=== PATIENT | female | born 1965 | race Caucasian/White ===

== ENCOUNTER 2018-08-04 08:11 | Day surgery (SDC) | payer BC ==
[~2018-08-04 08:11] MED LIST: Buffered Lidocaine 0.9% SYRIN* 5 ML/SYR SYRINGE INTRADERM ONE; Dexamethasone IV* 4 MG/ML 1 ML (4 MG) IV SLOW PU ONE; Famotidine IV* 10 MG/ML 2 ML (20 mg) IV ONE
[2018-08-04] MEDS ORDERED: Famotidine IV* 10 MG/ML 2 ML (20 mg) ONE (08:23)
[2018-08-04] MEDS ORDERED: Buffered Lidocaine 0.9% SYRIN* 5 ML/SYR SYRINGE ONE (08:23)
[2018-08-04] MEDS ORDERED: Dexamethasone IV* 4 MG/ML 1 ML (4 MG) ONE (08:23)
[2018-08-04] MEDS ORDERED: Midazolam* 1 MG/ML 2 ML VIAL (2 MG) ONE (09:32)
[2018-08-04] MEDS ORDERED: fentaNYL* 50 MCG/ML 2 ML VIAL (100 MCG VIAL) ONE ×2 (09:32→11:36)
[2018-08-04] MEDS ORDERED: Lidocaine 2% PF * 5 ML VIAL ONE (10:52)
[2018-08-04] MEDS ORDERED: Propofol* 10 MG/ML 20 ML BTL IV PUSH ONE (11:02)
[2018-08-04] MEDS ORDERED: Ondansetron INJ* 2 MG/ML VIAL ONE (11:12)
[2018-08-04] MEDS ORDERED: Acetaminophen TAB* 325 MG PO PRN (11:21)
[2018-08-04] MEDS ORDERED: oxyCODONE/Acetamin 5/325 MG* TAB PO PRN (11:21)
[2018-08-04] MEDS ORDERED: Naloxone* 0.4 MG/ML 1 ML VIAL IV PRN (11:21)
[2018-08-04] MEDS ORDERED: PROCHLORPERAZINE INJ 5 MG/ML 2 ML VIAL IV PRN (11:21)
[2018-08-04] MEDS ORDERED: DiMENhydriNATE IV* 50 MG/ML VIAL IV PUSH PRN (11:21)
[2018-08-04] MEDS ORDERED: PROCHLORPERAZINE INJ 5 MG/ML 2 ML VIAL ONE (11:36)
[2018-08-04] MEDS: fentaNYL* 50 MCG/ML 2 ML VIAL (100 MCG VIAL) IV PRN ×2 (11:38→11:43)
[2018-08-04 12:18] VITALS: BP 117/65
--- NOTE | 2018-08-06 12:09 | OP ---
DATE OF OPERATION: 08/04/18 - [facility] DATE OF : 69 SURGEON: Lincoln Edwards MD ANESTHESIOLOGIST: Dr. Hightower. ANESTHESIA: General endotracheal. PRE-OP DIAGNOSIS: Persistent light vaginal bleeding. POST-OP DIAGNOSIS: Persistent light vaginal bleeding and endocervical polyps. OPERATIVE PROCEDURE: Hysteroscopy, dilation and curettage, and endocervical polypectomy with MyoSure. ESTIMATED BLOOD LOSS: Minimal. URINE OUTPUT: 200 cc. IV FLUIDS: 700 cc lactated Ringers. MATERIALS TO LAB: Endometrial curettings and cervical polyp. INDICATIONS: This patient is a 53-year-old 0 who presented to the office with a complaint of persistent but very light pink vaginal bleeding. This had been going on for several months. Ultrasound was unremarkable with a very thin endometrium present. The decision was made to proceed with a hysteroscopic evaluation to evaluate for possible polyps present. She was extensively counseled and consent was signed. FINDINGS: Normal fairly atrophic endometrial cavity but cervical canal with 2 distinct cervical polyps present. COMPLICATIONS: None. DESCRIPTION OF PROCEDURE: The risks, benefits, and alternatives were described to the patient and informed consent was obtained. The patient was taken to the operating room with IV running where general anesthesia was induced and found to be adequate. The patient was prepped and draped in the normal sterile fashion in the high lithotomy position in Ridge stirrups. A time-out was performed. The bladder was emptied. A Martinez retractor and Casper were placed in the vagina and the cervix was visualized. A single tooth tenaculum was placed on the anterior cervix. The external os of the cervix was completely closed and dilation had to be done initially using small lacrimal duct dilators. Once this was done, the next step was then to use very small Hanks dilators until a 6 -mm hysteroscope could fit through the cervical os. This dilation was done carefully and slowly but the canal was successfully located. At this time, the hysteroscope was advanced through the cervix and then initially into the uterine cavity. The uterine cavity appeared normal with no abnormalities present. On entry and exit from the cervical canal, 2 small polyps were noted inside the canal itself on the posterior surface. A MyoSure LITE device was prepared and placed through the scope and the polyps were resected without difficulty. The hysteroscope was then removed. The endometrial cavity was then curetted using a small Kevorkian curette. A scant amount of endometrium was collected on Telfa. The tenaculum was then removed from the cervix and there was minimal bleeding present. The patient was then returned to the supine position. The patient tolerated the procedure well. Sponge, lap, and needle counts were correct x2. [id number]/[facility] #: [id number] MTDD
== END 2018-08-04 13:16 | disposition home or self-care (01) ==
LOC: OR 08:11
PROVIDERS: ATTEND Obstetrics & Gynecology
DX: N93.9 Abnormal uterine and vaginal bleeding, unspecified (principal); N84.0 Polyp of corpus uteri
CPT/HCPCS: 81025; 88305; J0780; J1100; J2250; J2405; J2704; J3010